=== PATIENT | male | born 1985 | race Caucasian/White ===

== ENCOUNTER 2022-07-23 22:30 | Emergency (ER) | payer OTHER, SELFPAY ==
[2022-07-23 22:31] VITALS: BP 137/88; PULSE 67; RESP 14; TEMP 36.6; O2SAT 95; BMI 25.1
--- NOTE | 2022-07-23 22:40 | ED_ITS ---
HPI - Extremity Problem General: Chief complaint: Extremity Injury, Upper Stated complaint: right hand finger lac Time Seen by Provider: 07/23/22 22:40 History of Present Illness: 37-year-old male patient was using a knife to open up a box when it slipped causing him to cut the dorsal aspect of his right index finger. Patient is left-handed. Patient cannot recall his last tetanus. Patient moves fingers without difficulty. Associated symptoms: Deny chest pain or fever(s) Review of Systems General: Reports: 10 or more systems reviewed and unremarkable except in HPI and below Const: Denies: fever(s) Card: Denies: chest pain Resp: Denies: dyspnea Skin/Breast: Reports: other (Laceration right index finger) Physical Exam Const: COMMON NORMALS: alert HENMT: COMMON NORMALS: normocephalic HEAD & SCALP: normocephalic Neck/C-Spine: CERVICAL SPINE: Yes cervical ROM normal Resp: COMMON NORMALS: normal respiratory effort Cardio: COMMON NORMALS: regular rate RATE: regular rate Back/Pelvis: COMMON NORMALS: thoracic and lumbar spine normal to inspection Extremity: RIGHT UPPER EXTREMITY: Yes hand & digits (2 cm laceration to the right dorsal index finger normal range of motion) Right hand and digits: Yes inspection, Yes palpation and Yes ROM exam Neuro: SENSORIUM/ORIENTATION: Yes alert Skin: TRAUMA: laceration (2 cm right index finger) linear Procedures Laceration Laceration 1: Site: hand Side (If applicable): right Size (cm): 2 Description: linear Depth: simple, single layer Pre-repair: wound explored and irrigated extensively Skin layer closed with: other (Skin adhesive, splint) Course Vital Signs: Vital signs: Vital Signs Temperature 97.9 F 07/23/22 22:31 Pulse Rate 67 07/23/22 22:31 Respiratory Rate 14 07/23/22 22:31 Blood Pressure 137/88 07/23/22 22:31 Pulse Oximetry 95 07/23/22 22:31 Oxygen Delivery Me thod 07/23/22 22:31 MDM - Extremity (Nontraumatic) Medical Decision Making Patient comes in for evaluation of injury to the right index finger. Patient has a 2 cm laceration to the dorsal right finger. Normal tendon function. Normal distal sensation. No foreign body or nail damage is noted. Differential diagnosis includes laceration, tendon injury, need for prophylaxis tetanus. Patient was updated on his tetanus. 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 Wound was cleaned and approximated and covered with skin adhesive and OpSite. Patient tolerated well. Dressing was used to splint the digit. Patient was recommended to monitor site for signs of infection. Keep this wound as dry as possible. Follow-up with primary care for further instructions. Discharge Plan Discharge Patient Disposition: Home Clinical Impression: Finger laceration Qualifiers: Encounter type: initial encounter Finger: index finger Damage to nail status: without damage Foreign body presence: without foreign body Laterality: right Qualified Code(s): S61.210A - Laceration without foreign body of right index finger without damage to nail, initial encounter Condition: Stable Prescriptions: New amoxicillin-pot clavulanate 875-125 mg tablet 1 tab PO BID Qty: 13 0RF Discharge Orders: Discharge ED (Routine); Ordered 07/23/22 Ordered By: Marcus Giordano Discharge Diet: Usual diet Patient Instructions: Finger Laceration (ED) Activity Restrictions/Additional Instructions: Keep wound clean and dry as possible. Keep wound wrapped to protect laceration. Take antibiotic as directed. Follow-up with primary care as needed. Return to ED for worsening symptoms such as increased swelling, high fever, or uncontrolled pain. Coding Level of Care Code ED Machine Operator General for Ki Johnson
[2022-07-23] MEDS: amoxicillin-clav 875-125 mg Tablet 1 TAB PO (23:02)
[2022-07-23] MEDS: tetanus-dipt-pertussis 0.5 mL SDV IM (23:02)
[2022-07-23 23:08] VITALS: BP 113/69; PULSE 90; RESP 14
== END 2022-07-23 23:10 | disposition home or self-care (01) ==
PROVIDERS: Emergency Provider Nurse Practitioner Family; PCP Family Medicine
DX: S61.210A Laceration without foreign body of right index finger without damage to nail, initial encounter (principal); W26.0XXA Contact with knife, initial encounter; Z23 Encounter for immunization
CPT/HCPCS: 12001; 90471; 90715; 99283